=== PATIENT | male | born 1975 | race Caucasian/White ===

== ENCOUNTER 2016-05-21 12:33 | Emergency (ER) | payer SELFPAY ==
[~2016-05-21 12:33] MED LIST: COLACE-DPS100 MG PO; HABITROL DPS21 MG TD; KEPPRA DPS500 MG PO; KEPPRA1000 MG PO; MILK OF MAGNESI10 ML PO; NORCO 5-325 TA1 EACH PO; OMNICEF DPS300 MG PO; PEPCID20 MG PO; PHENOBARB64.8 MG PO; PHENOBARB97.2 MG PO; PROVENTIL HFA6.7 GM IH; SENOKOT DPS8.6 MG PO; TOPAMAX100 MG PO; VIMPAT50 MG PO
--- NOTE | 2016-05-22 15:16 | NUR ---
Attempted to contact pt via phone call. No answer, voice mail message left.
--- NOTE | 2016-05-23 09:32 | NUR ---
Attempted to contact pt via phone call. No answer, voice mail message left.
--- NOTE | 2016-05-27 07:08 | ER ---
ADMIT: 05/21/2016 RM/LOC: ER [facility] MR#: [id number] [address] [id number] [address] Emergency Room Report SEX: M AGE: 40 : 1975 DATE: 05/21/2016 HISTORY OF PRESENT ILLNESS: The patient is a 40-year-old male with a past medical history of seizure disorders, traumatic brain injury, came to the ER with allegedly had another seizure today while he was on [place]. The patient denies any head trauma or fall and states while he felt dizzy he was put down on the floor with the help of the others, unknown duration of the seizure, no postictal per EMS, unknown type of the seizure. The patient states he is on Keppra and phenobarbital and he is compliant with the Keppra, but he has not taken phenobarbital for the last week. In the ER, the patient is not postictal. There is no confusion. No pain or distress. Alert and oriented x4. Answers all the questions and very cooperative. No obvious signs of trauma. Denies any headache, neck pain, back pain, or chest pain. Denies any abdominal pain. Denies also taking any other medications or using drugs. PHYSICAL EXAMINATION: HEENT: Pupils are 3 mm, reactive to light bilaterally. Trachea midline. Normal extraocular movements. Cranial nerves grossly normal. Motor, sensory, and cerebellar test normal. LUNGS: Bilateral equal breath sounds. HEART: Normal S1 and S2. ABDOMEN: Soft abdomen. EXTREMITIES: No obvious signs of trauma in extremities with normal range of motion. The prolactin level was 4.1. The patient was negative for urine tox. Phenobarbital level was less than 2.1 and CBC; WBC of 6.8 with hemoglobin of 15.5 and platelet of 306,000. Also CMP was negative except for glucose, which was 138. Ethanol level was also negative in the blood. After reviewing the previous charts, the patient used to receive phenobarbital 100 mg in the morning and 200 mg at night. The patient was loaded with phenobarbital in the ER. The patient is already taking Keppra. The patient is stable to be discharged to home with return precautions and advised to follow up with the primary care physician tomorrow morning. The patient agreed with the plan of discharge to home. Kirk Sneed MD/ arlin JOB #: [id number] CC: Kirk Sneed MD, Attending Physician UNKNOWN, Family Physician
== END 2016-05-21 15:40 | disposition home or self-care (01) ==
LOC: ER 12:33
DX: R56.9 Unspecified convulsions (principal); F17.210 Nicotine dependence, cigarettes, uncomplicated; Z91.19 Patient's noncompliance with other medical treatment and regimen; Z87.820 Personal history of traumatic brain injury; Z79.899 Other long term (current) drug therapy

== ENCOUNTER 2016-07-06 01:30 | Emergency (ER) | payer SELFPAY ==
--- NOTE | 2016-07-06 05:56 | ER ---
ADMIT: 07/06/2016 RM/LOC: ER [facility] MR#: [id number] [address] [address] [address] Emergency Room Report SEX: M AGE: 40 : 1975 DATE: 07/06/2016 TIME: 1:30. Please refer to my T-sheet for complete H and P. HISTORY OF PRESENT ILLNESS: Briefly, the patient is a 40-year-old who was using a pigment grinder. The wheel came off, it cut him in the left arm and right leg. It happened just prior. He comes in for evaluation. PHYSICAL EXAMINATION: VITAL SIGNS: Stable. EXTREMITIES: His left arm has a large laceration 8 cm to the forearm, it involves the extensor muscle belly, but does not seem to limit it. He is neurovascularly intact distally from it. His right leg has a large laceration 10 cm and again involves the quadriceps muscle belly, but not significant either, it seems to move okay. He is neurovascularly intact distally. EMERGENCY DEPARTMENT COURSE: We anesthetized the area with bupivacaine with epi. We then scrubbed with Hibiclens scrub and saline wash. They then were approximated using iqra. An x-ray of his left forearm revealed no bony prominence or tenderness. I talked to him about the depth and the significance of these lacerations, he understood. I recommended he follow up with Dr. Veliz, who is on-call to be assured that his muscle lacerations are healing properly and there is no infection. I gave him a dose of Keflex. I gave him a shot of Dilaudid 1 mg IM. He is ready for discharge. ASSESSMENT: 1. Right leg laceration 10 cm with muscle involvement. Washed, anesthetized and flushed with saline in the emergency department. Closed with iqra. 2. Left arm laceration 8 cm, involving the muscle belly also. Anesthetized with bupivacaine with epi, flushed with saline Hibiclens scrub and closed with iqra. PLAN: Keflex 500 q.i.d. for 10 days. [place] 5s, gave him script for #20. Return if worse and follow up with [facility] for recheck. Lester Villar MD/ arlin JOB #: [id number] CC: Lester Villar MD, Attending Physician Harjinder Veliz MD
== END 2016-07-06 03:00 | disposition home or self-care (01) ==
LOC: ER 01:30
PROC: 0HQCXZZ Repair Left Upper Arm Skin, External Approach (ICD-10-PCS; principal; 2016-07-06)
PROC: 0HQHXZZ Repair Right Upper Leg Skin, External Approach (ICD-10-PCS; principal; 2016-07-06)
DX: S71.111A Laceration without foreign body, right thigh, initial encounter (principal); S41.112A Laceration without foreign body of left upper arm, initial encounter; F17.210 Nicotine dependence, cigarettes, uncomplicated; W45.8XXA Other foreign body or object entering through skin, initial encounter; Y92.009 Unspecified place in unspecified non-institutional (private) residence as the place of occurrence of the external cause

== ENCOUNTER 2016-07-08 22:42 | Emergency (ER) | payer SELFPAY ==
--- NOTE | 2016-07-09 13:08 | ER ---
ADMIT: 07/08/2016 RM/LOC: ER [facility] MR#: [id number] [id number] [place], [place] [address] [address] [place] [address] Emergency Room Report SEX: M AGE: 40 : 1975 DATE: 07/08/2016 HISTORY: The patient is a 40-year-old male, who came here with chief complaint of right thigh erythema and mild tenderness and pain for 1 day. The patient states 2 days ago, he had a laceration, work accident, and it was repaired by iqra in the ER, and he was discharged with cephalexin and states that he noticed mild erythema around the area. He was compliant with medications. The patient also complains of [id number] tenderness around the area of pain, but he can do all the range of motion without difficulty. PHYSICAL EXAMINATION: VITAL SIGNS: The patient was afebrile at home. In the ER, the patient was afebrile, no tachycardia, was sitting in the bed, in no obvious pain or distress. HEAD AND NECK: Noncontributory. CHEST: Clear bilaterally to breath sounds. HEART: Normal S1, S2. ABDOMEN: Soft. EXTREMITIES: Peripheral pulses are normal, there is no crepitation in the extremities, normal range of motion in all extremities. There is mild erythematous area with mild lymphangitis around the laceration on the right anterior thigh, which was marked. There is no crepitation in the area. There is no pain out of proportion in the area. The patient did not look toxic. The laceration looked clean and dry without any discharge or without accumulation of erythema or accentuation of the erythema around the laceration. The patient received IV fluids, pain was controlled, the patient received IV vancomycin in the ER and Bactrim p.o. The patient's erythema was marked, the patient was discharged to home to continue cephalexin and was added Bactrim DS too. The patient was supposed to follow up with the primary doctor or the ER in 24 hours for recheck of the erythema and the wound and was discharged to home with return precautions and strict followup. The patient acknowledged he understood the plan and agreed with it. Kirk Sneed MD/ arlin JOB #: [id number] CC: Bebeto Zuniga MD, Attending Physician Harjinder Veliz MD, Family Physician
== END 2016-07-09 02:12 | disposition home or self-care (01) ==
LOC: ER 22:42
DX: L03.115 Cellulitis of right lower limb (principal); F17.210 Nicotine dependence, cigarettes, uncomplicated

== ENCOUNTER 2016-07-17 12:32 | Emergency (ER) | payer SELFPAY ==
--- NOTE | 2016-07-24 10:35 | ER ---
ADMIT: 07/17/2016 RM/LOC: ER [facility] MR#: [id number] [id number] [place], [place] [address] [facility] [address] [place] [address] Emergency Room Report SEX: M AGE: 40 : 1975 DATE: 07/17/2016 CHIEF COMPLAINT: Wound dehiscence and wound separation. HISTORY OF PRESENT ILLNESS: This is a 40-year-old white male, coming in after suffering some type of laceration within the last week or so if not longer. This was stapled. [place] removed and then somehow he has had some skin separation. The wound is otherwise healing, does not appear to be infected. He was given antibiotics, which he failed to fill. He has no other complaints. PAST MEDICAL HISTORY: Significant disease, pseudoseizures, carpal tunnel. MEDICATIONS: Phenobarbital. ALLERGIES: DEPAKOTE AND DILANTIN. FAMILY AND SOCIAL HISTORY: Smoker, marijuana, alcohol. REVIEW OF SYSTEMS: CONSTITUTIONAL: Negative. RESPIRATORY: Negative. DIRECTOR OF RESIDENTIAL SERVICES: Pseudoseizures in the past. However, he still gets treated that we had seen him many times for this, and Neurology had said that to treat when he goes into these. Rest of review of systems is essentially negative. PHYSICAL EXAMINATION: GENERAL: Does not appear to be acutely distressed. VITAL SIGNS: Stable. He is afebrile. SKIN: He has like a 12 cm wound on the anterior medial aspect of his right leg, this is more superior than distal to the thigh. It is healed except for maybe 4 cm where the wound had dehisced some, it is healing underneath. DIAGNOSIS: Wound dehiscence treatment. At this time, we cleaned this, we dressed it firm, we told him that he would just a half to let that heal on its own. We did give him a doctor for followup. CONDITION ON DISCHARGE: Fair. Tom Newton MD/ arlin JOB #: [id number] CC: Tom Newton MD, Attending Physician Dario Darling MD, Family Physician
== END 2016-07-17 14:15 | disposition home or self-care (01) ==
LOC: ER 12:32
DX: T81.30XA Disruption of wound, unspecified, initial encounter (principal); F17.210 Nicotine dependence, cigarettes, uncomplicated; F12.20 Cannabis dependence, uncomplicated; R56.9 Unspecified convulsions; Z79.899 Other long term (current) drug therapy; Z88.8 Allergy status to other drugs, medicaments and biological substances

== ENCOUNTER 2016-07-18 13:19 | Emergency (ER) | payer SELFPAY ==
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
== END 2016-07-18 14:20 | disposition home or self-care (01) ==
LOC: ER 13:19
DX: S16.1XXA Strain of muscle, fascia and tendon at neck level, initial encounter (principal); V43.62XA Car passenger injured in collision with other type car in traffic accident, initial encounter; R56.9 Unspecified convulsions; F17.210 Nicotine dependence, cigarettes, uncomplicated; Z88.8 Allergy status to other drugs, medicaments and biological substances